=== PATIENT | male | born 1960 | race Caucasian/White ===

== ENCOUNTER 2020-03-06 05:48 | Emergency (ER) | payer OTHER ==
[2020-03-06] MEDS ORDERED: SODIUM CHLORIDE 0.9% 1,000 ML IV STA (06:12)
[2020-03-06] MEDS ORDERED: ONDANSETRON 4 MG/2 ML VIAL IVP STA (06:12)
[2020-03-06] MEDS ORDERED: KETOROLAC 15 MG/ML 1 ML VIAL IVP STA (06:14)
[2020-03-06] MEDS ORDERED: MORPHINE SULFATE 2 MG/ML SYRINGE IVP STA (06:21)
--- NOTE | 2020-03-06 06:23 | ED ---
General Adult HPI - General Chief complaint: Abdominal Pain Stated complaint: abd pain,hypertension,nausea Time Seen by Provider: 03/06/20 06:06 Source: patient, family, RN notes reviewed Mode of arrival: ambulatory Limitations: no limitations - History of Present Illness Initial comments: Patient is a 59-year-old male presents emergency department complaining of left flank pain. He has a past history of diabetes, high blood pressure and renal disease. He didn't know history of kidney stones, lithotripsy. He also noted that his dental chair assembler noted to his left kidney is 8 cm compared to his right kidney which is 11 cm. Also had a Doctor said of the right kidney fails left kidney isn't life-sustaining. Patient states point tenderness left flank mid back. He said the pain started last night but he thought would go away so took his medication with bed. He woke up this morning with increased pain that was constant. He said he did not take his medication at this morning. He noted that he has had no difficulty with urinating. She notes some mild nausea associated with pain. He denied any abdominal tenderness, right flank pain, chest pain, shortness of breath, headache, constipation, diarrhea, fever, fatigue, chills, night sweats. - Related Data Previous Rx's Medication Instructions Recorded Acetaminophen-Codeine 300-30mg 1 tab PO Q4H PRN 3 Days #18 tablet 03/06/20 [Tylenol w/codeine #3] Tamsulosin [Flomax] 0.4 mg PO DAILY #14 cap 03/06/20 Allergies Allergy/AdvReac Type Severity Reaction Status Date / Time No Known Allergies Allergy Verified 03/06/20 05:57 Review of Systems ROS Statement: Those systems with pertinent positive or pertinent negative responses have been documented in the HPI. ROS Other: All systems not noted in ROS Statement are negative. Past Medical History Past Medical History: Diabetes Mellitus, Hypertension, Renal Disease Additional Past Medical History / Comment(s): carotid artery blockage, kidney stones History of Any Multi-Drug Resistant Organisms: None Reported Additional Past Surgical History / Comment(s): renal surgery Past Psychological History: No Psychological Hx Reported Smoking Status: Current every day smoker Past Alcohol Use History: None Reported Past Drug Use History: None Reported General Exam Limitations: no limitations General appearance: alert, in no apparent distress Head exam: Present: atraumatic, normocephalic, normal inspection Eye exam: Present: normal appearance, PERRL, EOMI. Absent: scleral icterus, conjunctival injection, periorbital swelling ENT exam: Present: normal exam, mucous membranes moist Neck exam: Present: normal inspection. Absent: tenderness, meningismus, lymphadenopathy Respiratory exam: Present: normal lung sounds bilaterally. Absent: respiratory distress, wheezes, rales, rhonchi, stridor Cardiovascular Exam: Present: regular rate, normal rhythm, normal heart sounds. Absent: systolic murmur, diastolic murmur, rubs, gallop, clicks GI/Abdominal exam: Present: soft, normal bowel sounds. Absent: distended, tenderness, guarding, rebound, rigid Back exam: Present: normal inspection, CVA tenderness (L) Neurological exam: Present: alert, oriented X3, CN II-XII intact Psychiatric exam: Present: normal affect, normal mood Skin exam: Present: warm, dry, intact, normal color. Absent: rash Course Vital Signs 03/06/20 03/06/20 05:51 07:11 Temperature 97.8 F Pulse Rate 94 88 Respiratory 22 Rate Blood Pressure 202/96 159/59 O2 Sat by Pulse 100 98 Oximetry - Reevaluation(s) Reevaluation #1: 03/06/20 07:41 Patient appeared more comfortable, he stated that the pain medication a lot him to close his eyes and get a few minutes to rest. Patient and family were informed that case was discussed with Dr. Orozco and they need to follow-up with their dental chair assembler as soon as possible. Due to the presence of several large kidney stones. Medical Decision Making - Medical Decision Making 59-year-old male complaining of left flank pain. Handled labs well. Labs showed no significant different from previous labs. 2 mg of morphine given, patient tolerated well. Case discussed with Dr. Orozco. - Lab Data Result diagrams: 03/06/20 06:27 03/06/20 06:27 Lab Results 03/06/20 03/06/20 Range/Units 06:27 06:27 WBC 14.2 H (3.8-10.6) k/uL RBC 5.13 (4.30-5.90) m/uL Hgb 15.8 (13.0-17.5) gm/dL Hct 46.6 (39.0-53.0) % MCV 90.8 (80.0-100.0) fL MCH 30.8 (25.0-35.0) pg MCHC 34.0 (31.0-37.0) g/dL RDW 13.2 (11.5-15.5) % Plt Count 258 (150-450) k/uL MPV 6.9 Neutrophils % 86 % Lymphocytes % 9 % Monocytes % 4 % Eosinophils % 1 % Basophils % 0 % Neutrophils # 12.1 H (1.3-7.7) k/uL Lymphocytes # 1.3 (1.0-4.8) k/uL Monocytes # 0.5 (0-1.0) k/uL Eosinophils # 0.1 (0-0.7) k/uL Basophils # 0.1 (0-0.2) k/uL Sodium 139 (137-145) mmol/L Potassium 4.8 (3.5-5.1) mmol/L Chloride 104 (98-107) mmol/L Carbon Dioxide 24 (22-30) mmol/L Anion Gap 11 mmol/L BUN 28 H (9-20) mg/dL Creatinine 1.88 H (0.66-1.25) mg/dL Est GFR (CKD-EPI)AfAm 44 (>60 ml/min/1.73 sqM) Est GFR (CKD-EPI)NonAf 38 (>60 ml/min/1.73 sqM) Glucose 161 H (74-99) mg/dL Calcium 10.1 (8.4-10.2) mg/dL Total Bilirubin 0.8 (0.2-1.3) mg/dL AST 25 (17-59) U/L ALT 20 (4-49) U/L Alkaline Phosphatase 112 (38-126) U/L Total Protein 7.4 (6.3-8.2) g/dL Albumin 4.5 (3.5-5.0) g/dL Amylase 80 (30-110) U/L Lipase 92 (23-300) U/L Disposition Clinical Impression: Nephrolithiasis, Flank pain Disposition: HOME SELF-CARE Instructions (If sedation given, give patient instructions): Kidney Stones (ED), Flank Pain (ED) Additional Instructions: Please return to the Emergency Department if symptoms worsen or any other concerns. Drink plenty of water. Follow-up with [place] urologist or [facility] urologist whichever can get him in the fastest. Take pain medication as prescribed to help control symptoms. Prescriptions: Tamsulosin [Flomax] 0.4 mg PO DAILY #14 cap Acetaminophen-Codeine 300-30mg [Tylenol w/codeine #3] 1 tab PO Q4H PRN 3 Days #18 tablet PRN Reason: Pain Is patient prescribed a controlled substance at d/c from ED?: No Referrals: [facility] [Primary Care Provider] - 1-2 days Kali Grey MD [STAFF PHYSICIAN] - 1-2 days Time of Disposition: 07:54
[2020-03-06] MEDS ORDERED: hydrALAZINE HCL 20 MG/ML 1 ML VIAL IVP STA (06:25)
[2020-03-06 06:40] LABS: Basophils # (A) 0.1 k/uL (0-0.2); Basophils % (A) 0 %; Eosinophils # (A) 0.1 k/uL (0-0.7); Eosinophils % (A) 1 %; HCT 46.6 % (39.0-53.0); HGB 15.8 gm/dL (13.0-17.5); Lymphocytes # (A) 1.3 k/uL (1.0-4.8); Lymphocytes % (A) 9 %; MCH 30.8 pg (25.0-35.0); MCV 90.8 fL (80.0-100.0); Mean Platelet Volume 6.9; Monocytes # (A) 0.5 k/uL (0-1.0); Monocytes % (A) 4 %; Neutrophils # (A) 12.1 k/uL (1.3-7.7); Neutrophils % (A) 86 %; Platelet Count 258 k/uL (150-450); RBC 5.13 m/uL (4.30-5.90); RDW 13.2 % (11.5-15.5); WBC 14.2 k/uL (3.8-10.6)
[2020-03-06 06:43] LABS: Albumin 4.5 g/dL (3.5-5.0); Calcium 10.1 mg/dL (8.4-10.2); Potassium 4.8 mmol/L (3.5-5.1); Total Bilirubin 0.8 mg/dL (0.2-1.3); Total Protein 7.4 g/dL (6.3-8.2)
--- NOTE | 2020-03-06 07:31 | CT ---
EXAMINATION TYPE: CT abdomen pelvis wo con DATE OF EXAM: 03/06/2020 COMPARISON: CT 08/04/2012 HISTORY: 59-year-old male left flank pain CT DLP: 662.1 mGycm. Automated exposure control for dose reduction was used. TECHNIQUE: Contiguous axial scanning of the abdomen and pelvis without IV contrast. Coronal and sagit gaurav reconstructions performed. FINDINGS: Heart normal size without pericardial effusion. Lung bases clear without pleural effusion. Noncontrast appearance of the liver, gallbladder, adrenal glands, spleen, and pancreas show no gross abnormality by noncontrast CT. Approximately 6 nonobstructive right renal calculi, largest measuring 1.3 cm. Lobulated renal contour is similar from 2013. Approximately 8 nonobstructive left renal calculi, largest measuring 8 mm. The left kidney is again n oted to be asymmetrically atrophic. There is a 8 mm calculus at the proximal most left ureter with mi ld hydronephrosis. Lobulated renal contour similar to 2013. Bilateral perinephric edema may reflect senescent change or chronic kidney disease. Edema slightly gr eater on the left, dependent along the left flank. Some scattered prominent but nonenlarged intraperitoneal lymph nodes probably reactive/post inflammat ory. No mesenteric lymphadenopathy seen. Mild to moderate stool burden. Redundant sigmoid colon. No pericolonic inflammatory change. No dilated small bowel, free fluid, or free air. Moderate prostatic calcifications infrarenal abdomin al aorta and iliac arteries. Mild circumferential bladder wall thickening. Multiple pelvic phleboliths. Prostate gland enlarged 4. 8 cm wide. No abnormal fluid collection in the pelvis or pelvic lymphadenopathy. Bones: Degenerative change in both hips. Degenerative bridging bony cholecystitis at the SI joints. H ypertrophic facet arthropathy mid to lower lumbar spine. Mild multilevel degenerative disc disease. IMPRESSION: 1. An 8 mm calculus just beyond the left UPJ in the upper left ureter with [id number] obstruct kiki uropathy. 2. Redemonstrated atrophy of the left kidney. Additional nonobstructing renal calculi on both sides measuring up to 1.3 cm. 3. Bilateral perinephric edema suggests chronic medical renal disease or senescent change. Changes a re asymmetrically greater on the left with dependent edema along the left flank. Correlate to exclude superimposed infection. 4. Mild prostatomegaly of 4.7 cm wide. Circumferential bladder wall thickening may reflect chronic b ladder wall hypertrophy or cystitis. Clinically correlate.
--- NOTE | 2020-03-06 07:34 | XR ---
EXAMINATION TYPE: XR KUB DATE OF EXAM: 03/06/2020 Comparison: 10/13/2012 Clinical History: 59-year-old male abdominal pain Findings: Lung bases are clear. No evidence for free intraperitoneal air. Moderate stool burden. Couple borderline distended small bowel loops in the left mid abdomen measuring up to 2.1 cm. No diff erential air-fluid levels are seen. Air extends distally to the rectum. Bilateral renal calculi measuring up to 7 mm on the right. Bowel content partially obscures the left renal shadow. A 9 mm calculus left paramedian mid abdomen corresponds well to the urinary tract is seen on CT same day. IMPRESSION: Bilateral nephrolithiasis. A 9 mm calcification in the left paramedian midabdomen corresponds to the left ureteral calculus seen on CT of the same day. Moderate stool burden. Nonobstructive bowel gas pattern.
[2020-03-06 08:09] VITALS: BP 168/75; PULSE 96; RESP 16; TEMP 98.1
== END 2020-03-06 08:11 | disposition home or self-care (01) ==
LOC: EC 05:48
DX: N20.2 Calculus of kidney with calculus of ureter (principal); E11.9 Type 2 diabetes mellitus without complications; I10 Essential (primary) hypertension; F17.200 Nicotine dependence, unspecified, uncomplicated
CPT/HCPCS: 36415; 74018; 74176; 80053; 82150; 83690; 85025; 96361; 96374; 96375; 99284

== ENCOUNTER → 2020-03-19 | Outpatient (CLI) | payer OTHER ==
--- NOTE | 2020-03-19 15:31 | XR ---
EXAMINATION TYPE: XR KUB DATE OF EXAM: 03/19/2020 COMPARISON: NONE HISTORY: URETERAL CALCULUS TECHNIQUE: One view abdominal series FINDINGS: The osseous structures are intact. The bowel gas pattern is nonspecific. Right Kidney: Approximately 10 calcifications noted overlying the right kidney scattered throughout t he upper, mid and lower pole the largest measuring 8.5 mm. Left kidney: There are approximately 11 calcifications overlying the left kidney one of which may be within the renal pelvis or proximal ureter. The largest measures approximately 6.5 mm. Hypertrophic degenerative changes spine. Calcifications in the pelvis are nonspecific but likely vasc ular. Arthropathy of the hips correlate for femoral acetabular impingement. IMPRESSION: 1. Bilateral nephrolithiasis as discussed above.
== END | disposition home or self-care (01) ==
LOC: RADXRMAIN 14:59
PROVIDERS: ATTEND Urology
DX: N20.0 Calculus of kidney (principal)
CPT/HCPCS: 74018

== ENCOUNTER → 2020-04-14 | Outpatient (CLI) | payer OTHER ==
--- NOTE | 2020-04-14 15:48 | XR ---
EXAMINATION TYPE: XR KUB DATE OF EXAM: 04/14/2020 COMPARISON: 03/19/2020 HISTORY: Ureteral calculus TECHNIQUE: One view abdominal series FINDINGS: Right kidney: There are approximately 10-12 calcifications overlying the right kidney the largest екатерина suring 6 mm. Left kidney: There are 2 calcifications measuring 3 mm a left overlying the left kidney. There are approximately 4 calcifications is seen adjacent to the L3 vertebral body and L3-L4 disc spa ce measuring a diameter less than 5 mm suspicious for left ureteral calculus. Within the pelvis multiple calcifications appear to be stable from prior exam and likely vascular. Ar thropathy of the hips. Degenerative change of the spine. Bowel gas pattern nonspecific. IMPRESSION: 1. Bilateral nephrolithiasis with multiple mid left ureteral calculi noted.
== END | disposition home or self-care (01) ==
LOC: RADXRMAIN 15:04
PROVIDERS: ATTEND Urology
DX: N20.2 Calculus of kidney with calculus of ureter (principal)
CPT/HCPCS: 74018; 82565; 84520

== ENCOUNTER → 2020-07-14 | Outpatient (CLI) | payer OTHER ==
--- NOTE | 2020-07-15 14:57 | US ---
EXAMINATION TYPE: US kidneys/renal and bladder DATE OF EXAM: 07/14/2020 COMPARISON: NONE CLINICAL HISTORY: N20.1 LT URETERAL STONE. h/o multiple renal stones, recent left lithotripsy. no carson n today. EXAM MEASUREMENTS: Right Kidney: 12.4 x 5.0 x 6.8 cm Left Kidney: N/A Right Kidney: 1.3cm mid pole stone, 1.5cm simple cyst inferior pole Left Kidney: only saw small portion of left renal when patient was rolled RLD, bowel gas severely martinez its exam Bladder: wnl IMPRESSION: 1. Mid and inferior pole right renal stones without obstruction. Extremely limited left renal evaluat ion
== END | disposition home or self-care (01) ==
LOC: RADUSWWP 16:24
PROVIDERS: ATTEND Urology
DX: N20.2 Calculus of kidney with calculus of ureter (principal)
CPT/HCPCS: 76770

== ENCOUNTER → 2020-07-15 | Outpatient (CLI) | payer OTHER ==
[2020-07-16 05:42] LABS: Non-African American GFR(CKD) 32.7 (60.0-200.0)
== END | disposition home or self-care (01) ==
LOC: LABWHC1 14:58
PROVIDERS: ATTEND Urology
DX: N20.1 Calculus of ureter (principal)
CPT/HCPCS: 36415; 82565; 84520